=== PATIENT | male | born 1975 | race American Indian/Alaskan Native ===

== ENCOUNTER 2017-02-21 02:15 | Emergency (ER) | payer MEDICAID ==
[2017-02-21 02:16] VITALS: BMI 25.0
--- NOTE | 2017-02-21 02:20 | C.PDOC ---
History Of Present Illness Patient presents to the ER with a complaint of feeling anxious and he feeling like he is going through withdrawal. Patient states he normally take 30mg of oxycodon twice a day but states he lost his prescription. Patient reports his doctor is out of the country or the month. Denies nausea, vomiting, or diarrhea. Time Seen by Provider: 02/21/17 02:20 History Per: Patient History/Exam Limitations: no limitations Onset/Duration Of Symptoms: Hrs Current Symptoms Are (Timing): Still Present Suicide/Self Injury Attempted (Context): None Modifying Factor(s): None Associated Symptoms: denies: Depression, Suicidal Thoughts, Suicidal Plan Involuntary Hold By: None Recent travel outside of the [place]: No Past Medical History Reviewed: Historical Data, Nursing Documentation, Vital Signs Vital Signs: Last Vital Signs Temp 98 F 02/21/17 03:33 Pulse 72 02/21/17 03:33 Resp 16 02/21/17 03:33 BP 140/80 02/21/17 03:33 Pulse Ox 98 02/21/17 03:33 - Medical History PMH: No Chronic Diseases Surgical History: No Surg Hx Family History: States: No Known Family Hx - Social History Hx Tobacco Use: Yes Hx Alcohol Use: Yes Hx Substance Use: No Review Of Systems Constitutional: Negative for: Fever, Chills Gastrointestinal: Negative for: Nausea, Vomiting, Diarrhea Psych: Positive for: Withdrawal Physical Exam - Physical Exam Appears: Non-toxic, No Acute Distress Skin: Warm, Dry Head: Normacephalic Oral Mucosa: Moist Chest: Symmetrical, No Tenderness Cardiovascular: Rhythm Regular Respiratory: No Rales, No Rhonchi, No Wheezing Gastrointestinal/Abdominal: Soft, No Tenderness Neurological/Psych: Oriented x3 ED Course And Treatment O2 Sat by Pulse Oximetry: 97 (Room air) Pulse Ox Interpretation: Normal Progress Note: Clonidine and zofran administered. Patient was seen by station worker who gave patient information for local detox sites and methadone clinics. Disposition Counseled Patient/Family Regarding: Studies Performed, Diagnosis, Need For Followup, Rx Given - Disposition Referrals: [facility] [Outside] [facility] [Outside] Disposition: HOME/ ROUTINE Disposition Time: 02:20 Condition: FAIR Prescriptions: Ondansetron ODT [Zofran ODT] 1 odt PO BID PRN #20 odt PRN Reason: Nausea/Vomiting Instructions: Polysubstance Abuse (ED) Forms: [facility] ([place]) - Clinical Impression Clinical Impression: Medical assessment, Opioid abuse - Scribe Statement The provider has reviewed the documentation as recorded by the Scribe Steve Saleem All medical record entries made by the Scribe were at my direction and personally dictated by me. I have reviewed the chart and agree that the record accurately reflects my personal performance of the history, physical exam, medical decision making, and the department course for this patient. I have also personally directed, reviewed, and agree with the discharge instructions and disposition. Decision To Admit - . Patient Diagnosis: Medical assessment, Opioid abuse
[2017-02-21 02:32] VITALS: RESP 16
[2017-02-21 03:34] VITALS: BP 140/80; PULSE 72; TEMP 98
[2017-02-21 04:36] VITALS: O2SAT 97
== END 2017-02-21 03:42 | disposition home or self-care (01) ==
LOC: C.ER 02:15
DX: Z04.8 Encounter for examination and observation for other specified reasons (principal); F11.10 Opioid abuse, uncomplicated